=== PATIENT | female | born 2000 | race Caucasian/White ===

== ENCOUNTER 2022-07-28 19:51 | Observation (INO) | payer MEDICAID, SELFPAY ==
--- NOTE | 2022-07-28 19:56 | ECG_ITS ---
Measurements Intervals [place] Rate: 172 P: [place]: 0 QRS: 74 QRSD: 77 T: 70 QT: 264 QTc: 448 Interpretive Statements SINUS TACHYCARDIA VERSUS/CONSIDER ATYPICAL ATRIAL FLUTTER NONSPECIFIC ST & T-WAVE ABNORMALITY ABNORMAL RHYTHM ECG NO PREVIOUS ECG AVAILABLE FOR COMPARISON Electronically Signed On 07-31-2022 13:35:27 CDT by Jose Pollock M.D.
--- NOTE | 2022-07-28 20:03 | ED_ITS ---
HPI - General Adult General Chief complaint: Overdose Stated complaint: SI ATTEMPT/ OD History of Present Illness HPI narrative: 29-year-old male presenting to the emergency department for evaluation after an intentional overdose with Benadryl. Approximate 1 hour prior to arrival patient took an estimated 47 x 25 mg Benadryl p.o. Patient did state that he did this as an attempt to kill himself. Patient states he also took an unknown number of hydrocodone yesterday with similar intent. Patient is a female to male transgender has been on hormone therapy for approximately 1.5 years. Patient had breast augmentation in March. Related Data Allergies Allergy/AdvReac Type Severity Reaction Status Date / Time No Known Allergies Allergy Unverified 07/05/17 17:26 Review of Systems Review of Systems: ROS unobtainable: Yes unobtainable due to mental status Exam Narrative: APPEARANCE: Well appearing, no pain, no distress, well-nourished. HEAD: normocephalic, atraumatic. EYES: PERRLA/EOMI, conjunctivae clear. NOSE: Normal no drainage NECK: Supple. No adenopathy, no masses. RESPIRATORY: Airway patent, respirations nonlabored. Clear to auscultation bilaterally, no rales, rhonchi, wheezing. CARDIOVASCULAR: Regular rate and rhythm without murmurs rubs or gallops. ABDOMINAL: Soft, nontender, nondistended, normal bowel sounds MUSCULOSKELETAL: Moves all extremities. Strength/ROM intact, No edema, No calf tenderness. NEURO: Alert. Cranial nerves II through XII intact. Grossly intact SKIN: Warm, dry. Normal Color PSYCHIATRIC: Altered but flat affect Course Course Emergency Course: 3 L of normal saline were ordered to help with the tachycardia. Taylor catheter was ordered for anticipated urinary retention. Patient remains alert and oriented. Case was discussed with poison control and was also discussed with Dr. muhammad. Poison control recommended bicarb for widening QRS. Also recommended Ativan for seizure agitation. Also recommended Keppra as needed for seizure activity. In discussion with the hot plate press operator it was agreed to hold off on any benzos for now. Case discussed with the hospitalist and patient was accepted for admission. Prior to admission patient's condition was improving. Patient's heart rate was 170s on arrival but improved to 140 at time of admission. Vital Signs Vital signs: Vital Signs Temperature 99.6 F 07/28/22 20:28 Pulse Rate 150 H 07/28/22 20:28 Respiratory Rate 14 07/28/22 20:28 Blood Pressure 141/95 H 07/28/22 20:28 Pulse Oximetry 100 07/28/22 20:28 Oxygen Delivery Room Air 07/28/22 20:28 Temperature 99.6 F 07/28/22 20:28 Pulse Rate 150 H 07/28/22 20:41 Respiratory Rate 20 07/28/22 20:41 Blood Pressure 141/95 H 07/28/22 20:28 Pulse Oximetry 100 07/28/22 20:28 Oxygen Delivery Room Air 07/28/22 20:28 Medical Decision Making Vital Signs Vital Signs: Vital Signs Temperature 99.6 F 07/28/22 20:28 Pulse Rate 150 H 07/28/22 20:28 Respiratory Rate 14 07/28/22 20:28 Blood Pressure 141/95 H 07/28/22 20:28 Pulse Oximetry 100 07/28/22 20:28 Oxygen Delivery Room Air 07/28/22 20:28 Temperature 99.6 F 1
[2022-07-28 20:12] LABS: Alveolar/Arterial O2 Gradient 21.7 mmHg; Base Excess ABG 0.5 mEq/l (+/-2.0); Fractional Inspired Oxygen 21 %; HCO3 ABG 23.7 mEq/l (22.0-26.0); Oxygen Content ABG 23.8 %vol (16.0-22.0); Oxyhemoglobin 95.8 % THb (90.0-100.0); PCO2 ABG 34.6 mmHg (35.0-45.0); PO2 ABG 86.6 mmHg (80.0-100.0); PO2 FiO2 Ratio Arterial Blood 4.12 %; Total Hemoglobin 17.7 g/dL (12.0-18.0); pH ABG 7.453 (7.350-7.450)
[2022-07-28 20:13] LABS: Device ROOM AIR; Modified Allen's Test Pass; Site Drawn LEFT RADIAL
[2022-07-28 20:18] VITALS: RESP 20
[2022-07-28 20:24] LABS: Appearance Urine Slightly Cloudy (Clear); Basophils Percent Auto 0.6 % (0.2-1.2); Bilirubin Urine 2+ (Negative); Blood Urine Trace-intact (Negative); Color Urine Yellow (Yellow); Eosinophils Percent Auto 0.5 % (0-4.4); Glucose Urine UA Negative (Negative); Hematocrit 53.5 % (42.0-52.0); Hemoglobin 18.4 g/dL (14.0-18.0); Immature Granulocyte Absolute 0.02 K/mm3 (0.00-0.031); Immature Granulocyte Percent A 0.3 % (0-0.5); Ketones Urine 4+ mg/dL (Negative); Leukocyte Esterase Ur Trace LEU/UL (Negative); Lymphocytes Absolute Auto 1.67 K/mm3 (0.9-3.2); Lymphocytes Percent Auto 25.2 % (18.3-44.2); Mean Corpuscular HGB Conc 34.4 g/dl (32-36); Mean Corpuscular Hemoglobin 30.5 pg (26-34); Mean Corpuscular Volume 88.7 fl (80-100); Mean Platelet Volume 9.8 fl (7.4-10.4); Monocytes Absolute Auto 0.4 K/mm3 (0.1-0.6); Monocytes Percent Auto 6.2 % (2.6-8.5); Neutrophils Absolute Auto 4.5 K/mm3 (1.3-6.7); Neutrophils Percent Auto 67.2 % (45.5-73.1); Nitrate Urine Negative (Negative); Platelet Count Result 289 k/mm3 (150-375); Protein Urine Trace mg/dL (Negative); Red Blood Count 6.03 M/mm3 (4.6-6.20); Red Cell Distribution Width 13.7 % (11.5-14.5); White Blood Count 6.6 K/mm3 (4.5-10.0)
[2022-07-28 20:29] LABS: Bacteria Urine Trace /hpf; Mucus Urine Rare /lpf; RBC Urine 0-2 /hpf (0-2); Squamous Epithelial Cell Urine Rare /hpf (Few)
[2022-07-28 20:30] LABS: Add Urine Microscopic? YES
[2022-07-28 20:34] LABS: INR 1.2; Lactic Acid Reflex 1.5 mmol/L (0.7-2.0); Prothrombin Time 14.6 Seconds (11.1-14.7)
[2022-07-28 20:35] LABS: Acetaminophen < 10 ug/mL (10-30); Ethanol < 10 mg/dL (<10); Partial Thromboplastin Time 29.5 SECONDS (22.3-36.8); Salicylate < 1.0 mg/dL (2-20)
[2022-07-28 20:39] VITALS: BP 141/95; PULSE 150; RESP 14; TEMP 37.6; O2SAT 100
[2022-07-28 20:43] LABS: Alanine Aminotransferase 20 U/L (6-50); Albumin Level 5.4 g/dL (3.5-5.1); Alkaline Phosphatase 63 U/L (38-126); Amphetamine Screen Urine Negative (Negative); Anion Gap 22 mmol/L (8-16); Aspartate Amino Transferase 30 U/L (17-59); Barbiturate Screen Urine Negative (Negative); Benzodiazepines Screen Urine Positive (Negative); Bilirubin,Total 0.9 mg/dL (0.2-1.3); Blood Urea Nitrogen 14 mg/dL (9-20); Cannabinoid Screen Urine Negative (Negative); Carbon Dioxide 22 mmol/L (22-30); Chloride 98 mmol/L (98-107); Cocaine Screen Urine Negative (Negative); Creatine Kinase 59 U/L (55-170); Estimated Glomerular Filt Rate > 60; Glucose 74 mg/dL (65-110); Magnesium 2.1 mg/dL (1.6-2.3); Methadone Screen Urine Negative (Negative); Opiate Screen Urine Positive (Negative); Phencyclidine Screen Urine Negative (Negative); Phosphorus 1.4 mg/dL (2.5-4.5); Potassium 3.4 mmol/L (3.4-5.0); Sodium 142 mmol/L (137-145)
[2022-07-28 20:57] LABS: SPREG INTERNAL CONTROL Positive; Serum Qual hCG Negative
[2022-07-28 21:00] LABS: SARS-CoV-2 RNA PCR Negative
[2022-07-28] MEDS: SODIUM CHLORIDE 0.9% IV 1,000 ML 999 ML IV CONT ×6 (21:25→21:26)
--- NOTE | 2022-07-28 21:40 | ED.GENADULT ---
HPI - General Adult General Chief complaint: Overdose Stated complaint: SI/ATTEMPT /OD Time Seen by Provider: 07/28/22 21:34 History of Present Illness HPI narrative: 29-year-old male presenting to the emergency department for evaluation after an intentional overdose with Benadryl. Approximate 1 hour prior to arrival patient took an estimated 47 x 25 mg Benadryl p.o. Patient did state that he did this as an attempt to kill himself. Patient states he also took an unknown number of hydrocodone yesterday with similar intent. Patient is a female to male transgender has been on hormone therapy for approximately 1.5 years. Patient had breast augmentation in March. Related Data Home Medications Medication Instructions Recorded Confirmed testosterone cypionate 200 mg/mL 80 mg IM WEEKLY 07/28/22 07/28/22 intramuscular oil Allergies Allergy/AdvReac Type Severity Reaction Status Date / Time No Known Allergies Allergy Unverified 11/21/14 10:53 Review of Systems Review of Systems: CONSTITUTIONAL: Denies fever, chills, or sweats. EYES: Denies visual changes, redness, or discharge. ENT: Denies rhinorrhea, congestion, sore throat, or otalgia. CARDIOVASCULAR: Denies chest pain, palpitations, or edema. RESPIRATORY: Denies cough or dyspnea. GASTROINTESTINAL: Denies abdominal pain, nausea, vomiting, or diarrhea. GENITOURINARY: Denies dysuria or hematuria. SKIN: Denies rash or itching. MUSCULOSKELETAL: Denies back pain, joint pain, or myalgia. NEUROLOGIC: Denies headache, numbness, or weakness. PSYCHIATRIC: Anxiety and depression PMFSH Social History Social History Smoking status: Unknown if ever smoked Alcohol intake: never Substance use: never Substance use type: does not use Spiritual care concerns: No Exam Narrative: APPEARANCE: Well appearing, no pain, no distress, well-nourished. HEAD: normocephalic, atraumatic. EYES: PERRLA/EOMI, conjunctivae clear. NOSE: Normal no drainage NECK: Supple. No adenopathy, no masses. RESPIRATORY: Airway patent, respirations nonlabored. Clear to auscultation bilaterally, no rales, rhonchi, wheezing. CARDIOVASCULAR: Regular rate and rhythm without murmurs rubs or gallops. ABDOMINAL: Soft, nontender, nondistended, normal bowel sounds MUSCULOSKELETAL: Moves all extremities. Strength/ROM intact, No edema, No calf tenderness. NEURO: Alert. Cranial nerves II through XII intact. Grossly intact SKIN: Warm, dry. Normal Color PSYCHIATRIC: Altered but flat affect Course Course Emergency Course: 3 L of normal saline were ordered to help with the tachycardia. Taylor catheter was ordered for anticipated urinary retention. Patient remains alert and oriented. Case was discussed with poison control and was also discussed with Dr. muhammad. Poison control recommended bicarb for widening QRS. Also recommended Ativan for seizure agitation. Also recommended Keppra as needed for seizure activity. In discussion with the musculoskeletal physician it was agreed to hold off on any benzos for now. Case discussed with the hospitalist and patient was accepted for admission. Prior to admission patient's condition was improving. Patient's heart rate was 170s on arrival but improved to 120 at time of admission. Vital Signs Vital signs: Vital Signs Respiratory Rate 20 07/28/22 20:18 Temperature 99.5 F 07/29/22 04:00 Pulse Rate 99 07/29/22 06:00 Respiratory Rate 17 07/29/22 06:00 Blood Pressure 135/98 H 07/29/22 06:00 Pulse Oximetry 99 07/29/22 06:00 Oxygen Delivery Room Air 07/29/22 03:35 Medical Decision Making Vital Signs Vital Signs: Vital Signs Respiratory Rate 20 07/28/22 20:18 Temperature 99.5 F 07/29/22 04:00 Pulse Rate 99 07/29/22 06:00 Respiratory Rate 17 07/29/22 06:00 Blood Pressure 135/98 H 07/29/22 06:00 Pulse Oximetry 99 07/29/22 06:00 Oxygen Delivery Room Air 07/29/22 03:35 Lab Data Lab results reviewed: Yes I reviewed the pat
[2022-07-28] MEDS: LORazepam INJ (*CRX) 2 MG/ML VIAL 1 MG IV PUSH (21:46)
[2022-07-28 22:20] VITALS: PULSE 141
[2022-07-28 22:21] VITALS: BP 147/88; PULSE 147; RESP 12; O2SAT 100
--- NOTE | 2022-07-28 22:49 | PC.NURSE ---
Poison control stated that we need to watch the patient urine output. The medication peaks in 4- 5 hours and he is at risk for seizures. If the patient does code we need to give sodium Bicarb. we need to monitor the patient heart rate. if the patient seizes give Keppra
[2022-07-28 23:18] VITALS: BP 141/88; PULSE 130; RESP 25; TEMP 37.4; O2SAT 100
[2022-07-28 23:25] VITALS: BMI 25.9
[2022-07-28] MEDS: SODIUM CHLORIDE 0.9% IV 1,000 ML 125 ML IV CONT (23:40)
--- NOTE | 2022-07-28 23:42 | ADMGEN ---
This patient, Colette Jacinto, was admitted to Intensive Care Unit-10. Patient/family oriented to hospital policies and general routines including ID bracelet, bed and alarms, visiting hours, pain management, procedures, bathroom and other care routines, personal items, smoking policy, room service/diet, and visiting hours. Information on how to activate the Rapid Response Team has been discussed. Patient/Family are encouraged to report perceived risks to care and to ask questions if they do not understand what they are told or what they should do.
[2022-07-28 23:52] VITALS: PULSE 117; RESP 25; O2SAT 100
[2022-07-29] VITALS (17 sets, daily range): BP systolic 112–146; BP diastolic 53–103; PULSE 61–140; RESP 12–20; TEMP 36.6–37.5; O2SAT 98–100
--- NOTE | 2022-07-29 00:05 | PM.IMHP ---
H&P: HPI History of Present Illness Date/Time: 07/29/22 00:05 Chief Complaint: OD Narrative: This is a 21-year-old transgender male, patient is a female born transitioning into male. Presented to emergency room after ingesting 40+ tabs of Benadryl with intention of harming himself the day before ingested a number of Norcos as well. patient had a discussion with significant other, , has been in his usual state of health up until this has been undergoing hormonal treatment for the last year and a half roughly at the time of my visit patient did state that he wanted to harm himself and he did it on purpose denied any chest pain, shortness of breath, had some discomfort from Taylor catheter, no cough, no sputum production, no trouble swallowing, no muscle aches or pains. poison control was called. patient is been admitted to intensive care unit for further evaluation management and treatment. Review of Systems Review of Systems: ROS unobtainable: Yes unobtainable due to mental status ( overdose on anticholinergic) PMFSH Social History Social History Smoking status: Unknown if ever smoked Alcohol intake: never Substance use: never Substance use type: does not use Spiritual care concerns: No Meds Home Medications and Allergies Home Medications Medication Instructions Recorded Confirmed Type testosterone cypionate 200 mg/mL 80 mg IM WEEKLY 07/28/22 07/28/22 History intramuscular oil Allergies Allergy/AdvReac Type Severity Reaction Status Date / Time No Known Allergies Allergy Unverified 11/21/14 10:53 Vital Signs Vital Signs - 24 hr 07/28/22 20:39 07/28/22 20:18 07/28/22 22:20 Temperature 99.6 F Pulse Rate 150 H 141 H Respiratory Rate 14 20 Blood Pressure 141/95 H Pulse Oximetry 100 Oxygen Delivery Room Air 07/28/22 22:21 07/28/22 23:18 07/28/22 23:52 Temperature 99.4 F Pulse Rate 147 H 130 H 117 H Respiratory Rate 12 25 H 25 H Blood Pressure 147/88 H 141/88 H Pulse Oximetry 100 100 100 Oxygen Delivery Room Air 07/29/22 00:01 Temperature Pulse Rate 140 H Respiratory Rate 18 Blood Pressure 134/57 L Pulse Oximetry 100 Oxygen Delivery Exam Narrative: laying stricture Const: General: comfortable, no acute distress, well developed, alert, awake and average body habitus Nutritional Appearance: average body habitus Orientation/consciousness: patient oriented x3 Other: male pattern hair distribution HENMT: Head: normal to inspection, normocephalic and atraumatic Ears: hearing grossly normal bilaterally Face/Nose/Sinus: normal facial exam Face and sinus: normal facial exam Eyes: General: appearance normal, both eyes and all related structures Pupils: Equal, round and reactive pupils present EOM: EOMs intact bilaterally Neck: Neck: full ROM, no lymphadenopathy and no JVD Thyroid: thyroid normal Lymphatic: no lymphadenopathy noted Chest: Breast/axilla inspection: Other ( bilateral mastectomy) Resp: Effort & Inspection: normal respiratory effort and able to speak in complete sentences Auscultation: clear to auscultation bilaterally Cardio: Jugular venous distension: no JVD Rate: regular rate Rhythm: regular rhythm Heart sounds: S1 normal heart sound present and S2 normal heart sound present GI: Inspection: normal to inspection GI Palp: Yes Soft to palpation and Yes No hepatosplenomegaly present : General: Yes deferred Skin: Rashes: no rashes Wounds: no wounds Neuro: General: patient oriented x3 and CN's II-XI intact bilaterally Cranial nerves: Yes CN's II-XII intact bilaterally and Yes Equal, round and reactive pupils present Cognition (Neuro): normal cognition Speech: normal speech Gait exam (Neuro): Unable to assess gait Motor exam (neuro): 5/5 motor strength present throughout Extrem: General: normal to inspection, full ROM, no joint enlargement and no pedal edema Assessment and Plan Assessment and plan (1) Ant
[2022-07-29 04:21] LABS: Basophils Percent Auto 0.5 % (0.2-1.2); Eosinophils Percent Auto 0.1 % (0-4.4); Hematocrit 45.8 % (37.0-47.0); Hemoglobin 15.4 g/dL (12.0-15.0); Immature Granulocyte Absolute 0.03 K/mm3 (0.00-0.031); Immature Granulocyte Percent A 0.4 % (0-0.5); Lymphocytes Percent Auto 24.8 % (18.3-44.2); Mean Corpuscular HGB Conc 33.6 g/dl (32-36); Mean Corpuscular Volume 89.3 fl (80-100); Mean Platelet Volume 9.3 fl (7.4-10.4); Monocytes Absolute Auto 0.5 K/mm3 (0.1-0.6); Neutrophils Absolute Auto 5.2 K/mm3 (1.3-6.7); Neutrophils Percent Auto 68.2 % (45.5-73.1); Platelet Count Result 241 k/mm3 (150-375); Red Blood Count 5.13 M/mm3 (4.2-5.4); Red Cell Distribution Width 13.7 % (11.5-14.5); White Blood Count 7.7 K/mm3 (4.5-10.0)
[2022-07-29 04:34] LABS: Alanine Aminotransferase 15 U/L (6-35); Albumin Level 4.1 g/dL (3.5-5.1); Alkaline Phosphatase 46 U/L (38-126); Anion Gap 15 mmol/L (8-16); Aspartate Amino Transferase 20 U/L (14-36); Bilirubin,Total 0.8 mg/dL (0.2-1.3); Blood Urea Nitrogen 10 mg/dL (7-17); Calcium 8.6 mg/dL (8.4-10.2); Carbon Dioxide 21 mmol/L (22-30); Chloride 108 mmol/L (98-107); Estimated CRCL calculation 61 ml/min; Estimated Glomerular Filt Rate > 60; Glucose 66 mg/dL (65-110); Magnesium 1.9 mg/dL (1.6-2.3); Potassium 3.9 mmol/L (3.4-5.0); Sodium 144 mmol/L (137-145)
[2022-07-29 04:36] LABS: Creatine Kinase 46 U/L (30-135)
--- NOTE | 2022-07-29 06:09 | ECG_ITS ---
Measurements Intervals [place] Rate: 96 P: 66 [place]: 128 QRS: 60 QRSD: 82 T: 35 QT: 342 QTc: 432 Interpretive Statements SINUS RHYTHM POSSIBLE LEFT ATRIAL ENLARGEMENT NONSPECIFIC T-WAVE ABNORMALITY BORDERLINE ECG NO PREVIOUS ECG AVAILABLE FOR COMPARISON Electronically Signed On 07-29-2022 15:05:15 CDT by Edd Smith M.D.
--- NOTE | 2022-07-29 09:29 | WPDCNINT ---
Assessment and Plan Assessment and plan (1) Anticholinergic drug overdose: Code(s): T44.3X1A - Poisoning by other parasympatholytics [anticholinergics and antimuscarinics] and spasmolytics, accidental (unintentional), initial encounter Status: Acute Assessment and Plan: Patient took 47 pills of 25 mg Benadryl. On presentation patient was confused agitated and tachycardic Clinically improved now with IV fluids and low-dose benzodiazepine EKG reviewed and shows normal MS QTC and QRS Tachycardia improved Exam shows movement as compared to since presentation as noted by ED physician Continue monitor Will use benzodiazepine if needed but at this point he does not appear to be agitated Continue monitor Start p.o. diet (2) Suicide attempt: Code(s): T14.91XA - Suicide attempt, initial encounter Status: Acute Assessment and Plan: Patient will be evaluated by Psychiatry once clinically stable. I anticipate it will be tomorrow Sitter bedside (3) Elevated serum creatinine: Code(s): R79.89 - Other specified abnormal findings of blood chemistry Status: Acute Assessment and Plan: Patient creatinine is 1.1. Baseline unknown. This could be secondary to dehydration Continue IV fluids Check urine electrolyte Repeat BMP later today. If creatinine continues to increase or does not improve will order further workup CK level was normal Monitor urine output Plan DVT prophylaxis -patient likely to emboli Nutrition -start regular diet Code Status - Full Code Transfer out of ICU to a step-down unit Powder Line Repairer Consult Note Consult date: 07/29/22 Reason for consult: Diphenhydramine overdose HPI: Colette Jacinto is a 21 year old transgender female who is transitioning to male presented yesterday to ER after taking 47 pills of 25 mg Benadryl. Patient states that he was having argument with his and who was threatening to move out take their child to [place] with her. He felt depressed and took 47 pills of Benadryl to kill himself. He states that he took 14 pills of hydrocodone the day before but nothing happened. He had prescription for hydrocodone from his mastectomy surgery in March. He denies any past suicidal or homicidal ideation or attempts. He has never been diagnosed or treated for depression.Prior to taking pills he was asymptomatic and did not had any symptoms In ER patient was given IV fluids, low-dose Ativan and poison control was notified. Patient was unable to provide any meaningful history or review of systems at that time. Patient was admitted to ICU for further evaluation management. This morning when I evaluated the patient he states that he feels much better and denies any problems. He states he feels thirsty and drowsy. He states that he keeps on falling asleep. He also admits to having episodes of palpitations. Apart from that he denies any other complaints at this time. Patient denies fever, chest pain, shortness of breath, cough, nausea vomiting, abdominal pain,, diarrhea, headache or constipation. All the systems were reviewed and were negative Review of Systems Review of Systems: All systems reviewed & are unremarkable except as noted in HPI and below (HPI) [facility] Surgical History Surgical History H/O bilateral mastectomy Social History Social History Smoking status: Unknown if ever smoked Alcohol intake: current Alcohol use details: Occasional Substance use: never Substance use type: does not use Spiritual care concerns: No Meds Home Medications and Allergies Home Medications Medication Instructions Recorded Confirmed Type testosterone cypionate 200 mg/mL 80 mg IM WEEKLY 07/28/22 07/28/22 History intramuscular oil Allergies Allergy/AdvReac Type Severity Reaction Status Date / Time No Known Allergies Allergy Unverified 10/26
[2022-07-29] MEDS: LACTATED RINGERS 1,000 ML 100 ML IV CONT ×2 (09:57→19:47)
[2022-07-29 10:37] LABS: Appearance Urine Clear (Clear); Bilirubin Urine 1+ (Negative); Blood Urine Trace-intact (Negative); Color Urine Light Yellow (Yellow); Glucose Urine UA Negative (Negative); Ketones Urine 4+ mg/dL (Negative); Leukocyte Esterase Ur Negative LEU/UL (NEGATIVE); Nitrate Urine Negative (Negative); Protein Urine Negative (Negative); Specific Grav Ur >= 1.030 (1.001-1.035); pH Urine 5.5 (5.0-9.0)
[2022-07-29 10:42] LABS: Mucus Urine Rare /lpf; RBC Urine 0-2 /hpf (0-2); Squamous Epithelial Cell Urine Rare /hpf (Few); WBC Urine 0-3 /hpf (0-3)
[2022-07-29 11:18] LABS: Add Urine Microscopic? YES
[2022-07-29 13:03] LABS: Anion Gap 14 mmol/L (8-16); Blood Urea Nitrogen 11 mg/dL (7-17); Calcium 8.9 mg/dL (8.4-10.2); Carbon Dioxide 19 mmol/L (22-30); Chloride 105 mmol/L (98-107); Estimated CRCL calculation 67 ml/min; Estimated Glomerular Filt Rate > 60; Glucose 62 mg/dL (65-110); Potassium 4.1 mmol/L (3.4-5.0); Sodium 138 mmol/L (137-145)
[2022-07-29 13:13] LABS: Creatinine Urine 103.2 mg/dL
[2022-07-29 15:13] LABS: Sodium Urine Random 276 meq/L
--- NOTE | 2022-07-29 19:02 | PM.IMPN ---
Progress Note: A&P Assessment and Plan (1) Anticholinergic drug overdose: Code(s): T44.3X1A - Poisoning by other parasympatholytics [anticholinergics and antimuscarinics] and spasmolytics, accidental (unintentional), initial encounter Status: Acute Assessment and Plan: Patient took 47 pills of 25 mg Benadryl. On presentation patient was confused agitated and tachycardic Clinically improved now with IV fluids and low-dose benzodiazepine EKG reviewed and shows normal IN QTC and QRS Tachycardia improved Exam shows movement as compared to since presentation as noted by ED physician Continue monitor Will use benzodiazepine if needed but at this point he does not appear to be agitated Continue monitor Start p.o. diet (2) Suicide attempt: Code(s): T14.91XA - Suicide attempt, initial encounter Status: Acute Assessment and Plan: Patient will be evaluated by Psychiatry once clinically stable. Continue 1 on 1 observation (3) Elevated serum creatinine: Code(s): R79.89 - Other specified abnormal findings of blood chemistry Status: Acute Assessment and Plan: Patient creatinine is 1.1. Baseline unknown. This could be secondary to dehydration Continue IV fluids BMP stable CK level normal Plan DVT prophylaxis -SCDs Nutrition -start regular diet Code Status - Full Code Subjective Date/time seen: 07/29/22 19:02 Interval history: This is a 21-year-old transgender? male,? patient is a female? born transitioning into male.? Presented to emergency room after ingesting 40+ tabs of Benadryl with intention of harming? himself the day before ingested a? number of Norcos? as well. patient had a discussion with significant other, , has been? in his usual state of health up until this has been undergoing hormonal treatment for the last year and a half roughly at the time of my visit? patient did state that? he wanted to harm himself and he did? it on purpose denied any chest pain, shortness of breath, had some discomfort from Taylor catheter, no cough, no sputum production, no trouble swallowing, no muscle aches or pains.? poison control was called. patient is been admitted to intensive care unit for further evaluation management and treatment. 07/29/2022: Feeling well. No new complaints. No nausea vomiting abdominal pain chest pain or shortness of breath. Review of Systems Review of Systems: All systems reviewed & are unremarkable except as noted in HPI and below (HPI) Exam Narrative: General: Pt is alert awake and in NAD Lungs/Chest: Trachea central Clear BS B/L, No crackles or wheezing. Cardiac: RRR. Normal S1 S2. No murmurs Circulation: Pedal pulses are intact and symmetrical. Abdomen: Normal bowel sounds.. Soft. NT. ND. Extremities: No clubbing, cyanosis or edema. Warm : Taylor in place Neurologic: Follows commands. Moves all 4 extremities pupils are equal round and reactive to light Skin: No Rash Objective Data Vital Signs Vital Signs: Vital Signs - 24 hr 07/28/22 20:39 07/28/22 20:18 07/28/22 22:20 Temperature 99.6 F Pulse Rate 150 H 141 H Respiratory Rate 14 20 Blood Pressure 141/95 H Pulse Oximetry 100 Oxygen Delivery Room Air 07/28/22 22:21 07/28/22 23:18 07/28/22 23:52 Temperature 99.4 F Pulse Rate 147 H 130 H 117 H Respiratory Rate 12 25 H 25 H Blood Pressure 147/88 H 141/88 H Pulse Oximetry 100 100 100 Oxygen Delivery Room Air 07/29/22 00:01 07/29/22 00:00 07/29/22 00:00 Temperature 99.3 F Pulse Rate 140 H 120 H 112 H Respiratory Rate 18 20 Blood Pressure 134/57 L 128/84 Pulse Oximetry 100 100 Oxygen Delivery 07/29/22 02:00 07/29/22 02:00 07/29/22 03:35 Temperature Pulse Rate 114 H 111 H 111 H Respiratory Rate 13 18 Blood Pressure 139/91 H Pulse Oximetry 99 100 Oxygen Delivery Room Air 07/29/22 04:00 07/29/22 04:00 07/29/22 06:00 Temperature 99.5 F Pulse Rate 112 H 112 H 99 Respiratory Rate
[2022-07-29 19:18] LABS: Glucose Point of Care 151 mg/dl (65-105)
[2022-07-30] VITALS (9 sets, daily range): BP systolic 121–134; BP diastolic 84–93; PULSE 61–81; RESP 12–18; TEMP 36.9; O2SAT 98–100
[2022-07-30 03:52] LABS: Hematocrit 44.1 % (37.0-47.0); Hemoglobin 14.6 g/dL (12.0-15.0); Mean Corpuscular HGB Conc 33.1 g/dl (32-36); Mean Corpuscular Hemoglobin 29.6 pg (26-34); Mean Corpuscular Volume 89.3 fl (80-100); Mean Platelet Volume 9.2 fl (7.4-10.4); Platelet Count Result 234 k/mm3 (150-375); Red Blood Count 4.94 M/mm3 (4.2-5.4); Red Cell Distribution Width 13.7 % (11.5-14.5); White Blood Count 5.7 K/mm3 (4.5-10.0)
[2022-07-30 04:02] LABS: Alanine Aminotransferase 13 U/L (6-35); Albumin Level 3.6 g/dL (3.5-5.1); Alkaline Phosphatase 43 U/L (38-126); Anion Gap 11 mmol/L (8-16); Aspartate Amino Transferase 16 U/L (14-36); Bilirubin,Total 0.8 mg/dL (0.2-1.3); Blood Urea Nitrogen 10 mg/dL (7-17); Calcium 8.5 mg/dL (8.4-10.2); Carbon Dioxide 24 mmol/L (22-30); Chloride 103 mmol/L (98-107); Estimated CRCL calculation 74 ml/min; Estimated Glomerular Filt Rate > 60; Glucose 83 mg/dL (65-110); Magnesium 1.9 mg/dL (1.6-2.3); Potassium 3.7 mmol/L (3.4-5.0); Sodium 138 mmol/L (137-145)
[2022-07-30] MEDS: LACTATED RINGERS 1,000 ML 100 ML IV CONT (04:43)
--- NOTE | 2022-07-30 08:35 | PM.IMPN ---
Progress Note: A&P Assessment and Plan (1) Anticholinergic drug overdose: Code(s): T44.3X1A - Poisoning by other parasympatholytics [anticholinergics and antimuscarinics] and spasmolytics, accidental (unintentional), initial encounter Status: Acute Assessment and Plan: Patient took 47 pills of 25 mg Benadryl.? On presentation patient was confused agitated and tachycardic Clinically improved now with IV fluids. Most recent EKG reviewed and shows normal [place] QTC and QRS Tachycardia resolved Patient now asymptomatic Tolerating p.o. diet (2) Suicide attempt: Code(s): T14.91XA - Suicide attempt, initial encounter Status: Acute Assessment and Plan: Sitter bedside Will consult Psychiatry crisis evaluation today (3) Elevated serum creatinine: Code(s): R79.89 - Other specified abnormal findings of blood chemistry Status: Acute Assessment and Plan: Likely from dehydration. Resolved with IV Plan Discontinue urinary catheter Up ad dai Subjective Date/time seen: 07/30/22 08:35 No new complaints this morning. Feels good. Vital signs stable. Tachycardia improved. Normal p.o. intake. Afebrile All other systems were reviewed and were negative Review of Systems Review of Systems: All systems reviewed & are unremarkable except as noted in HPI and below (A subjective) Exam Narrative: General: Pt is alert awake and in NAD Lungs/Chest: Trachea central Clear BS B/L, No crackles or wheezing. Cardiac: RRR. Normal S1 S2. No murmurs Circulation: Pedal pulses are intact and symmetrical. Abdomen: Normal bowel sounds.. Soft. NT. ND. Extremities: No clubbing, cyanosis or edema. Warm : Taylor in place Neurologic: Follows commands. Moves all 4 extremities PERRL Skin: No Rash Objective Data Vital Signs Vital Signs: Vital Signs - 24 hr 07/29/22 10:00 07/29/22 10:00 07/29/22 12:00 Temperature 36.8 C Pulse Rate 92 92 92 Respiratory Rate 18 17 Blood Pressure 128/103 H 132/88 Pulse Oximetry 100 100 Oxygen Delivery 07/29/22 12:00 07/29/22 14:00 07/29/22 12:00 Temperature Pulse Rate 94 83 89 Respiratory Rate 14 Blood Pressure Pulse Oximetry 99 Oxygen Delivery Room Air 07/29/22 14:00 07/29/22 16:00 07/29/22 16:00 Temperature 36.6 C Pulse Rate 81 87 86 Respiratory Rate 19 15 Blood Pressure 112/53 L 136/77 Pulse Oximetry 98 99 Oxygen Delivery 07/29/22 16:00 07/29/22 18:00 07/29/22 19:48 Temperature Pulse Rate 81 88 79 Respiratory Rate 15 13 Blood Pressure Pulse Oximetry 100 98 Oxygen Delivery Room Air Room Air 07/29/22 20:00 07/29/22 20:00 07/29/22 22:00 Temperature 36.6 C Pulse Rate 83 85 79 Respiratory Rate 13 Blood Pressure 113/76 Pulse Oximetry 98 Oxygen Delivery 07/29/22 23:40 07/30/22 00:00 07/30/22 00:00 Temperature 36.9 C Pulse Rate 61 67 67 Respiratory Rate 12 16 Blood Pressure 121/91 H Pulse Oximetry 99 99 Oxygen Delivery Room Air 07/30/22 01:51 07/30/22 03:18 07/30/22 04:00 Temperature 36.9 C Pulse Rate 72 63 63 Respiratory Rate 14 12 Blood Pressure 126/93 H Pulse Oximetry 98 100 Oxygen Delivery Room Air 07/30/22 04:00 07/30/22 06:00 Temperature Pulse Rate 62 61 Respiratory Rate Blood Pressure Pulse Oximetry Oxygen Delivery Intake/Output Intake/Output: Intake & Output 07/27/22 07/28/22 07/29/22 07/30/22 23:59 23:59 23:59 23:59 Intake Total 3000 2360 1000 Output Total 800 1575 1100 Balance 2200 785 -100 Meds/Results Medications: Active Medications Generic Name Dose Route Start Last Admin Trade Name Freq PRN Reason Stop Dose Admin Ondansetron HCl 4 mg 07/28/22 21:43 Ondansetron Inj 4 Mg/2 Ml Vial IV PUSH Q4H PRN Nausea Labs Labs: Laboratory Results - last 24 hr 07/28/22 07/28/22 07/28/22 20:04 20:14 20:14 WBC RBC Hgb Hct MCV MCH MCHC RDW Plt Cou
--- NOTE | 2022-07-31 12:03 | PM.DS ---
DS: Admitting Diagnosis Discharge Date 07/30/22 Admitting Diagnosis Benadryl overdose DS: Discharge Diagnosis Discharge Diagnosis (1) Elevated serum creatinine: Code(s): R79.89 - Other specified abnormal findings of blood chemistry Status: Acute (2) Suicide attempt: Code(s): T14.91XA - Suicide attempt, initial encounter Status: Acute (3) Anticholinergic drug overdose: Code(s): T44.3X1A - Poisoning by other parasympatholytics [anticholinergics and antimuscarinics] and spasmolytics, accidental (unintentional), initial encounter Status: Acute DS: Summary Hospital Course Hospital Course: 21 year old transgender female who is transitioning to male presented 07/28 to ER after taking 47 pills of 25 mg Benadryl.? Patient states that he was having argument with his and who was threatening to move out take their child to [place] with her.? He felt depressed and took 47 pills of Benadryl to kill himself.? He states that he took 14 pills of hydrocodone the day before but nothing happened.? He had prescription for hydrocodone from his mastectomy surgery in March.? He denied any past suicidal or homicidal ideation or attempts.? He had never been diagnosed or treated for depression.Prior to taking pills he was asymptomatic and did not had any symptoms In ER patient was given IV fluids, low-dose Ativan and poison control was notified.? Patient was unable to provide any meaningful history or review of systems at that time.? Patient was admitted to ICU for further evaluation management. Next morning when I evaluated the patient he states that he feels much better and denies any problems.? He states he feels thirsty and drowsy.? He states that he keeps on falling asleep.? He also admits to having episodes of palpitations.? Apart from that he denies any other complaints at this time.? Patient denies fever, chest pain, shortness of breath, cough, nausea vomiting, abdominal pain,, diarrhea, headache or constipation.? All the systems were reviewed and were negative EKG showed normal [place] QTC and QRS. Fluids were continued as patient was still tachycardic clinically he was showing signs of improvement. Diet was resumed and patient was transfer out of ICU to a step-down unit. Sitter was kept at bedside along with suicide precautions. His lab work showed slightly elevated creatinine which is treated with rehydration. Next day on 07/30 patient was completely asymptomatic alert oriented times and his lab work showed creatinine level had normal. Patient was evaluated by Psychiatry and was deemed suitable for inpatient treatment for depression. Patient was also agreeable. Patient was transferred to [facility] inpatient psych facility for further treatment of his depression Time Spent with Patient Time attestation: Total time spent providing and/or coordinating discharge services: Discharge Plan Discharge Attending physician on discharge: Raul Rankin Consulting providers: Modesto Galvez Discharging Clinician: Modesto Galvez Patient Disposition: Other Activity: as tolerated Diet: regular Discharge Instructions: Do not restart testosterone injections until follow up with prescribing provider. Patient Instructions: Suicide Prevention (DC) Stand Alone Forms: General Discharge Information Discharge Medications: Continued testosterone cypionate 200 mg/mL oil 80 mg IM WEEKLY Rx Instructions: Every Wednesday. Date of admission: 07/28/22 21:43 Primary Care Provider: PHYSICIAN NOT ON STAFF,NONSTAFF Admitting Provider: Bhanu Lopez V. Attending physician on admission: Raul Rankin Condition: Stable
== END 2022-07-30 18:10 | disposition other institution (70) ==
LOC: ANHED 21:46 → ANHICU 07-29 03:00
PROVIDERS: Internal Medicine; Admitting Provider Internal Medicine; Emergency Provider Emergency Medicine; Visit Provider Internal Medicine
DX: T45.0X2A Poisoning by antiallergic and antiemetic drugs, intentional self-harm, initial encounter (principal); T14.91XA Suicide attempt, initial encounter; R79.89 Other specified abnormal findings of blood chemistry; F64.0 Transsexualism; Z79.890 Hormone replacement therapy; F41.9 Anxiety disorder, unspecified; F32.A Depression, unspecified; R00.0 Tachycardia, unspecified; Z20.822 Contact with and (suspected) exposure to COVID-19; R94.31 Abnormal electrocardiogram [ECG] [EKG]; Z90.13 Acquired absence of bilateral breasts and nipples; F10.90 Alcohol use, unspecified, uncomplicated; Y90.0 Blood alcohol level of less than 20 mg/100 ml
CPT/HCPCS: 36415; 36600; 51701; 80048; 80053; 80307; 81001; 82550; 82570; 82805; 82948; 83605; 83735; 84100; 84300; 84443; 84703; 85025; 85027; 85610; 85730; 87086; 93005; 96361; 96374; 99285; C9803; G0378; J2060; J7030; J7120; U0003; U0005